=== PATIENT | female | born 1970 | race Caucasian/White ===

== ENCOUNTER → 2023-10-06 09:01 | Outpatient (REF) | payer OTHER, SELFPAY | LOC: WDC 09:01 | PROVIDERS: ATTENDING PHYSICIAN Obstetrics & Gynecology | DX: R92.2 Inconclusive mammogram (principal) | CPT/HCPCS: 76641 ==

== ENCOUNTER 2024-03-19 12:49 | Emergency (ER) | payer OTHER, SELFPAY ==
[2024-03-19 12:53] VITALS: BP 137/84
[2024-03-19 13:50] VITALS: BMI 24.3
[2024-03-19 13:52] VITALS: BP 119/80
--- NOTE | 2024-03-19 13:55 | EDRN ---
Pt to BR at this time.
--- NOTE | 2024-03-19 14:28 | ED.GENMED ---
History of Present Illness
General
Chief Complaint: Rabies
Source: patient
Time Seen by Provider: 03/19/24 13:54
History of Present Illness
History of Present Illness:
53-year-old female presenting to the emergency department for evaluation at the request of local urgent care after patient presented to the for evaluation from being bitten by an unknown outdoor cat. Patient was walking her dog when she was
attacked by 2 separate cats. She states she is not sure if she was bitten by 1 Or the other or both. While at the urgent care patient was started on antibiotics, had her wounds clean and received an x-ray to rule out any foreign bodies. Patient
states she does not know the counter intelligence of the cat but through friends found out who the counter intelligence is and contacted the counter intelligence who states that the cat is reportedly vaccinated for rabies. [employer] and patient were unaware of if the other cat was owned by any
other household in the area.
Past History
Past History
ED Past Medical History: Asthma
ED Past Surgical History: Orthopedic
Social History
Tobacco: Non-smoker
Alcohol: Occasional
Drug: None
Personal:
Living: with family
Employment: Employed
Family History
Family History: Diabetes
Review of Systems
Review of Systems
All Other Systems: ROS reviewed and negative except as documented in HPI and ROS
Phy Exam
Physical Exam
Physical Exam:
GENERAL: Alert , in no apparent distress
EYE: conjunctiva clear
Head: Normocephalic atraumatic
NECK: Supple,
ENT: mmm.
LUNGS: no acute respiratory distress
NEUROLOGICAL: Alert and oriented
SKIN: Warm and dry, Multiple scratches and bites to the left lower extremity. Large dressing overlying the left proximal tib-fib region extending towards the knee and thigh
MUSCULOSKELETAL: well perfused.
PSYCH: Normal and appropriate interaction.
Scores
Heart Failure Risk
Heart Failure Risk Score: Not Applicable
Heart Score for Chest Pain Patients
STEMI patient?: Not applicable
Withdrawal Assessment of Alcohol
Withdrawal Assessment Completed?: Not applicable
Course
Orders/Labs/Results
Orders:
Orders
03/19/24 14:27
Rabies Immune Globulin/Pf [HyperRAB] 1,384 unit IM NOW STA
Rabies Vaccine (Pcec)/Pf [Rabavert Rabies Vacc W-Diluent] 2.5 unit IM .ONCE ONE
Vital Signs
Initial and Last Documented VS:
Initial Vital Signs
Temp Pulse Resp BP Pulse Ox
98.3 F 91 20 137/84 99
03/19/24 12:53 03/19/24 12:53 03/19/24 12:53 03/19/24 12:53 03/19/24 12:53
Last Documented Vital Signs
Temp Pulse Resp BP Pulse Ox
98.3 F 75 16 119/80 99
03/19/24 12:53 03/19/24 13:52 03/19/24 13:52 03/19/24 13:52 03/19/24 13:52
MDM/Problems Addressed
MDM/Problems Addressed:
53-year-old female presenting to the emergency department for evaluation after being bitten and scratched by an unknown outdoor cat. Sent to the ER for rabies prophylaxis. Given the attack occurred from unknown animal patient preferred to initiate
rabies prophylaxis. Patient provided with printout of dates needed to return to the ER for further rabies vaccination. She will continue to take antibiotic as prescribed. Otherwise stable for discharge home. Aware of return precautions.
*Pulse Oximetry
Patient hypoxic: no
*Critical Care Note
Total Time (30-74mins, 75-104mins- exclusive of procedures): Not Applicable
ED Attending Note
-
Portions of this chart may have been created with voice recognition software.� Occasional wrong word or��sound alike� substitutions may have occurred due to the inherent limitations of voice recognition software.
Discharge Plan
Departure
Patient Disposition: Home (Routine Discharge)
Date of Disposition: 03/19/24
Time of Disposition: 14:28
Patient with high blood pressure during this ER visit?: No
Discharge Problem:
Cat bite
Instructions: Animal Bites (DC)
Prescriptions:
No Action
hydrocodone-acetaminophen 5 MG/500 MG tablet
1 tab PO Q6HPRN PRN (Reason: PAIN) Qty: 15 0RF
ibuprofen 600 MG tablet
600 mg PO Q6H Qty: 30 0RF
Stand Alone Forms: Rabies Vaccine Post Exp Dosing
Interventions
Interventions:
*Risk Screen - Suicide Last Done: 03/19/24 12:53
*General Assessment Last Done: 03/19/24 12:53
*Neglect/Abuse Screening Last Done: 03/19/24 12:53
ED- Fall Risk Assessment Last Done: 03/19/24 13:50
*ED COVID-19 Vaccine History Last Done: 03/19/24 13:50
Discharge Date and Time
Print Language: JAPANESE
--- NOTE | 2024-03-19 14:40 | EDRN ---
Pharmacy called to send rabies medications.
[2024-03-19] MEDS: HyperRAB 1384 UNIT IM (15:15)
[2024-03-19] MEDS: RABAVERT RABIES VACC W-DILUENT 2.5 UNIT IM (15:19)
== END 2024-03-19 15:34 | disposition home or self-care (01) ==
LOC: EMR 12:49
PROVIDERS: EMERGENCY PHYSICIAN Emergency Medicine; FAMILY PHYSICIAN Nurse Practitioner Family
DX: S81.852A Open bite, left lower leg, initial encounter (principal); W55.01XA Bitten by cat, initial encounter; Z23 Encounter for immunization; Z20.3 Contact with and (suspected) exposure to rabies; Z29.14 Encounter for prophylactic rabies immune globulin
CPT/HCPCS: 99284; 90471; 96372; 90375; 90675

== ENCOUNTER 2024-03-27 13:08 | Outpatient (RCR) | payer OTHER, SELFPAY ==
[2024-03-22 13:26] VITALS: BP 122/63
[2024-03-22] MEDS: RABAVERT RABIES VACC W-DILUENT 2.5 UNIT IM (13:33)
[2024-03-27 13:23] VITALS: BP 108/66
[2024-03-27 13:28] VITALS: BP 108/66
[2024-03-27] MEDS: RABAVERT RABIES VACC W-DILUENT 2.5 UNIT IM (13:37)
== END 2024-03-28 09:08 | disposition home or self-care (01) ==
LOC: OID 13:08
PROVIDERS: ATTENDING PHYSICIAN Emergency Medicine; FAMILY PHYSICIAN Nurse Practitioner Family
DX: Z23 Encounter for immunization (principal); Z20.3 Contact with and (suspected) exposure to rabies
CPT/HCPCS: 90471; 90675

== ENCOUNTER 2024-04-04 13:54 | Outpatient (RCR) | payer OTHER, SELFPAY ==
[2024-04-04 13:45] VITALS: BP 130/66
[2024-04-04] MEDS: RABAVERT RABIES VACC W-DILUENT 2.5 UNIT IM (14:20)
== END 2024-04-05 08:36 | disposition home or self-care (01) ==
LOC: OID 13:54
PROVIDERS: ATTENDING PHYSICIAN Emergency Medicine; FAMILY PHYSICIAN Nurse Practitioner Family
DX: Z20.3 Contact with and (suspected) exposure to rabies (principal); Z23 Encounter for immunization
CPT/HCPCS: 90471; 90675

== ENCOUNTER → 2024-06-08 16:46 | Outpatient (REF) | payer OTHER, SELFPAY | LOC: WDC 16:46 | PROVIDERS: ATTENDING PHYSICIAN Obstetrics & Gynecology Gynecology; FAMILY PHYSICIAN Nurse Practitioner Family | DX: Z12.31 Encounter for screening mammogram for malignant neoplasm of breast (principal) | CPT/HCPCS: 77063; 77067 ==

== ENCOUNTER → 2024-10-10 09:08 | Outpatient (REF) | payer OTHER, SELFPAY | LOC: WDC 09:08 | PROVIDERS: ATTENDING PHYSICIAN Obstetrics & Gynecology; FAMILY PHYSICIAN Family Medicine | DX: R92.2 Inconclusive mammogram (principal) | CPT/HCPCS: 76641 ==

== ENCOUNTER → 2025-06-11 12:52 | Outpatient (REF) | payer OTHER, SELFPAY | LOC: WDC 12:52 | PROVIDERS: ATTENDING PHYSICIAN Obstetrics & Gynecology; FAMILY PHYSICIAN Nurse Practitioner Family | DX: Z12.31 Encounter for screening mammogram for malignant neoplasm of breast (principal) | CPT/HCPCS: 77063; 77067 ==